=== PATIENT | male | born 1955 | race Caucasian/White ===

== ENCOUNTER 2017-07-09 14:53 | Emergency (ER) | END 2017-07-10 00:53 | disposition left against medical advice (07) | DX: R07.9 Chest pain, unspecified (principal); E87.5 Hyperkalemia; I10 Essential (primary) hypertension; E11.9 Type 2 diabetes mellitus without complications; Z79.4 Long term (current) use of insulin | CPT/HCPCS: 70450; 80048; 80306; 80307; 81001; 82550; 82553; 82962; 84484; 85025; 93005; 96374; J1120; J7030; Z7502; Z7610 ==

== ENCOUNTER 2018-03-18 02:15 | Inpatient (IN) | END 2018-03-22 16:05 | disposition home or self-care (01) | DRG 872 ==

== ENCOUNTER 2018-03-31 00:28 | Emergency (ER) | END 2018-03-31 02:11 | disposition home or self-care (01) ==

== ENCOUNTER 2018-05-22 18:57 | Emergency (ER) | END 2018-05-23 00:40 | disposition home or self-care (01) ==

== ENCOUNTER 2018-06-27 16:26 | Inpatient (IN) | END 2018-07-04 12:40 | disposition home or self-care (01) | DRG 312 ==

== ENCOUNTER 2018-08-18 18:13 | Inpatient (IN) | END 2018-09-15 19:50 | disposition home or self-care (01) | DRG 291 ==